=== PATIENT | female | born 1955 | race Caucasian/White ===

== ENCOUNTER 2023-08-23 14:13 | Inpatient (IN) | payer MEDICARE, OTHER ==
[~2023-08-23] VITALS: Ht 157.5 cm; Wt 67.1 kg
[2023-08-23] MEDS ORDERED: LORAZEPAM 2 MG/1 ML VIAL ONE (14:38)
[2023-08-23] MEDS ORDERED: LORAZEPAM 2 MG/1 ML VIAL IM ONE (14:45)
[2023-08-23] MEDS ORDERED: MELA5TAB21 PO (15:15)
[2023-08-23] MEDS ORDERED: NITR0.4T48 SL (15:15)
[2023-08-23] MEDS ORDERED: LORA0.5T48 PO (15:15)
[2023-08-23] MEDS ORDERED: FLUO20CA36 PO (15:15)
[2023-08-23] MEDS ORDERED: VITAMIN D3 PO (15:15)
[2023-08-23] MEDS ORDERED: HYDR-3972 PO (15:15)
[2023-08-23] MEDS ORDERED: ALPR0.255 PO (15:15)
[2023-08-23] MEDS ORDERED: APIX2.5T PO (15:15)
[2023-08-23] MEDS ORDERED: MULT-213 PO (15:15)
[2023-08-23] MEDS ORDERED: TRAZ-257 PO (15:15)
[2023-08-23] MEDS ORDERED: MAGNESIUM HYDROXIDE 30 ML LIQUID UDC PO PRN (17:15)
[2023-08-23] MEDS ORDERED: BLOOD SUGAR DIAGNOSTIC 1 EACH STRIP VI ONE (17:15)
[2023-08-23] MEDS: ACETAMINOPHEN 325 MG TABLET PO PRN (17:28)
[2023-08-23] MEDS ORDERED: NITROGLYCERIN 0.4 MG/TAB BOTTLE SL PRN (17:45)
[2023-08-23] MEDS: LORAZEPAM 0.5 MG TABLET PO PRN (17:49)
[2023-08-23 18:58] VITALS: BP 98/69; TEMP 98.4; O2SAT 98
[2023-08-23 20:00] VITALS: BP 99/66; TEMP 98.1; O2SAT 97
[2023-08-23] MEDS: APIXABAN 2.5 MG TABLET PO SCH (20:23)
[2023-08-23] MEDS: HYDROCODONE/APAP 5-325MG TABLET PO PRN (20:25)
[2023-08-23] MEDS: TEMAZEPAM 7.5 MG CAPSULE PO PRN (21:37)
[2023-08-24] MEDS: LORAZEPAM 0.5 MG TABLET PO PRN ×3 (06:21→19:57)
[2023-08-24 08:12] VITALS: BP 121/77; TEMP 98; O2SAT 99
[2023-08-24 08:44] LABS: ALBUMIN 3.1 g/dL (3.4-5.0); BILIRUBIN,TOTAL 0.8 mg/dL (0.2-1.0); CALCIUM 9.8 mg/dL (8.5-10.1); CREATININE 0.5 mg/dL (0.6-1.3); POTASSIUM 3.6 mmol/L (3.5-5.1); TOTAL PROTEIN, SERUM 6.3 g/dL (6.4-8.2)
[2023-08-24] MEDS: APIXABAN 2.5 MG TABLET PO SCH ×2 (08:48→20:49)
[2023-08-24] MEDS: HYDROCODONE/APAP 5-325MG TABLET PO PRN ×2 (08:49→14:10)
[2023-08-24] MEDS: CHOLECALCIFEROL 1,000 UNIT TABLET PO SCH (08:49)
[2023-08-24] MEDS: MULTIVIT, IRON, MIN NO. 8, FA TABLET PO SCH (08:49)
[2023-08-24] MEDS ORDERED: [UNRECOGNIZED DRUG - OTHER] PO SCH (09:00)
[2023-08-24] MEDS ORDERED: Medication Not On Formulary EA (Multivitamins W-Minerals (Multivitamin With Minerals) 1 PO SCH (09:00)
[2023-08-24] MEDS ORDERED: APIXABAN 2.5 MG TABLET PO SCH (09:00)
[2023-08-24 12:26] LABS: BASOPHILS # (AUTO) 0.1 K/UL (0.0-0.2); BASOPHILS % (AUTO) 1.7 % (0.0-2.0); EOSINOPHILS # (AUTO) 0.1 K/uL (0.0-0.7); EOSINOPHILS % (AUTO) 2.9 % (0.0-7.0); HEMOGLOBIN 13.9 g/dL (10.9-14.3); LYMPHOCYTES # (AUTO) 1.3 K/uL (0.8-4.8); LYMPHOCYTES % (AUTO) 28.7 % (20.5-51.5); MEAN CORPUSCULAR HEMOGLOBIN 29.5 uug (24.7-32.8); MEAN CORPUSCULAR HGB CONC 33 g/dL (32.3-35.6); MEAN CORPUSCULAR VOLUME 90.7 fL (75.5-95.3); MONOCYTES # (AUTO) 0.3 K/uL (0.1-1.30); MONOCYTES % (AUTO) 6.1 % (0.0-11.0); NEUTROPHILS # (AUTO) 2.8 K/uL (1.8-8.9); NEUTROPHILS % (AUTO) 60.6 % (38.5-71.5); PLATELET COUNT (AUTO) 179 K/uL (179-408); RED BLOOD CELL COUNT(AUTO) 4.73 MIL/uL (3.63-4.92); RED CELL DISTRIBUTION WIDTH 14.2 % (12.3-17.7); WHITE BLOOD COUNT (AUTO) 4.6 K/uL (3.8-11.8)
[2023-08-24 12:53] LABS: DIFFERENTIAL COMMENT 1
[2023-08-24] MEDS: ALPRAZOLAM 0.25 MG TABLET PO SCH ×2 (12:59→17:35)
[2023-08-24] MEDS: DIVALPROEX SPRINKLE 125 MG CAP.SPRINK PO SCH ×2 (12:59→17:35)
[2023-08-24 15:14] VITALS: BP 105/69; TEMP 98; O2SAT 98
[2023-08-24 20:00] VITALS: BP 103/60; TEMP 98.1; O2SAT 97
[2023-08-24] MEDS: OLANZAPINE 2.5 MG TABLET PO SCH (20:49)
[2023-08-24] MEDS: REMEDY ESSENTIAL ZINC PASTE 113 GM TOP SCH (21:00)
[2023-08-24] MEDS: TEMAZEPAM 7.5 MG CAPSULE PO PRN (22:42)
[2023-08-25] MEDS: LORAZEPAM 0.5 MG TABLET PO PRN ×3 (06:21→16:59)
[2023-08-25 08:02] VITALS: BP 109/71; TEMP 98; O2SAT 98
[2023-08-25] MEDS: DIVALPROEX SPRINKLE 125 MG CAP.SPRINK PO SCH ×3 (08:33→16:42)
[2023-08-25] MEDS: CHOLECALCIFEROL 1,000 UNIT TABLET PO SCH (08:33)
[2023-08-25] MEDS: MULTIVIT, IRON, MIN NO. 8, FA TABLET PO SCH (08:33)
[2023-08-25] MEDS: ALPRAZOLAM 0.25 MG TABLET PO SCH ×3 (08:33→16:42)
[2023-08-25] MEDS: REMEDY ESSENTIAL ZINC PASTE 113 GM TOP SCH ×2 (08:33→20:55)
[2023-08-25] MEDS: APIXABAN 2.5 MG TABLET PO SCH ×2 (08:34→20:27)
[2023-08-25] MEDS: FLUOXETINE HCL 10 MG CAPSULE PO SCH (08:34)
[2023-08-25 16:05] VITALS: BP 90/61; TEMP 98; O2SAT 98
[2023-08-25 20:00] VITALS: BP 88/53; TEMP 98; O2SAT 96
[2023-08-25] MEDS: OLANZAPINE 2.5 MG TABLET PO SCH (20:26)
[2023-08-25] MEDS: TEMAZEPAM 7.5 MG CAPSULE PO PRN ×2 (21:33→22:45)
[2023-08-26] MEDS: LORAZEPAM 0.5 MG TABLET PO PRN ×2 (05:27→11:22)
[2023-08-26] MEDS: ACETAMINOPHEN 325 MG TABLET PO PRN ×2 (05:38→22:21)
[2023-08-26] MEDS: HYDROCODONE/APAP 5-325MG TABLET PO PRN ×2 (07:40→17:38)
[2023-08-26 07:43] LABS: *BILIRUBIN,URIN NEGATIVE (NEGATIVE); *BLOOD, URINE 2+ (NEGATIVE); *CLARITY,URINE CLOUDY (CLEAR); *COLOR,URINE YELLOW (YELLOW); *KETONES,URINE TRACE (NEGATIVE); *PROTEIN,URINE NEGATIVE (NEGATIVE); *UROBILINOGEN,URINE 0.2 E.U./dl (NORMAL); LEUKOCYTE ESTERASE ,URINE 3+ (NEGATIVE); NITRITE, URINE NEGATIVE (NEGATIVE); PH,URINE 6.5 (5.0-8.0); UGLUCOSE NEGATIVE (NEGATIVE)
[2023-08-26 08:05] LABS: BACTERIA,URINE MANY /HPF (NONE SEEN); SQUAMOUS EPITHELIAL CELL,UR MODERATE /HPF (NONE SEEN); WBC,URINE TNTC /HPF (0-3)
[2023-08-26 08:06] VITALS: BP 101/66; TEMP 98; O2SAT 98
[2023-08-26] MEDS: DIVALPROEX SPRINKLE 125 MG CAP.SPRINK PO SCH ×3 (08:51→16:14)
[2023-08-26] MEDS: ALPRAZOLAM 0.25 MG TABLET PO SCH ×3 (08:51→16:14)
[2023-08-26] MEDS: CHOLECALCIFEROL 1,000 UNIT TABLET PO SCH (08:51)
[2023-08-26] MEDS: MULTIVIT, IRON, MIN NO. 8, FA TABLET PO SCH (08:51)
[2023-08-26] MEDS: APIXABAN 2.5 MG TABLET PO SCH ×2 (08:52→22:23)
[2023-08-26] MEDS: FLUOXETINE HCL 10 MG CAPSULE PO SCH (08:52)
[2023-08-26] MEDS: REMEDY ESSENTIAL ZINC PASTE 113 GM TOP SCH ×2 (08:53→22:24)
[2023-08-26 16:06] VITALS: BP 100/55; TEMP 98; O2SAT 98
[2023-08-26] MEDS: CEphaleXIN 500 MG CAPSULE PO SCH (16:14)
[2023-08-26 19:45] VITALS: BP 82/50; TEMP 97.4; O2SAT 95
[2023-08-26 21:00] VITALS: BP 89/70
[2023-08-26] MEDS: OLANZAPINE 2.5 MG TABLET PO SCH (22:28)
[2023-08-27] MEDS: TEMAZEPAM 7.5 MG CAPSULE PO PRN ×2 (02:12→21:09)
[2023-08-27 02:16] VITALS: BP 107/62
[2023-08-27] MEDS: HYDROCODONE/APAP 5-325MG TABLET PO PRN ×2 (06:02→16:43)
[2023-08-27] MEDS: REMEDY ESSENTIAL ZINC PASTE 113 GM TOP SCH ×2 (06:03→21:10)
[2023-08-27 08:10] VITALS: BP 111/76; TEMP 98.3; O2SAT 98
[2023-08-27] MEDS: DIVALPROEX SPRINKLE 125 MG CAP.SPRINK PO SCH ×3 (08:14→16:42)
[2023-08-27] MEDS: ALPRAZOLAM 0.25 MG TABLET PO SCH ×3 (08:14→16:43)
[2023-08-27] MEDS: MULTIVIT, IRON, MIN NO. 8, FA TABLET PO SCH (08:14)
[2023-08-27] MEDS: CHOLECALCIFEROL 1,000 UNIT TABLET PO SCH (08:14)
[2023-08-27] MEDS: CEphaleXIN 500 MG CAPSULE PO SCH ×2 (08:15→16:43)
[2023-08-27] MEDS: FLUOXETINE HCL 10 MG CAPSULE PO SCH (08:17)
[2023-08-27] MEDS: APIXABAN 2.5 MG TABLET PO SCH ×2 (08:18→20:40)
[2023-08-27] MEDS: LORAZEPAM 0.5 MG TABLET PO PRN (09:58)
[2023-08-27] MEDS: ACETAMINOPHEN 325 MG TABLET PO PRN (13:26)
[2023-08-27 16:28] VITALS: BP 101/53; TEMP 98; O2SAT 97
[2023-08-27 20:05] VITALS: BP 93/55; TEMP 97.9; O2SAT 98
[2023-08-27] MEDS: OLANZAPINE 2.5 MG TABLET PO SCH (20:38)
[2023-08-28] MEDS: LORAZEPAM 0.5 MG TABLET PO PRN ×3 (04:01→20:39)
[2023-08-28] MEDS: HYDROCODONE/APAP 5-325MG TABLET PO PRN (06:47)
[2023-08-28 08:27] VITALS: BP 128/65; TEMP 98.1; O2SAT 98
[2023-08-28] MEDS: CHOLECALCIFEROL 1,000 UNIT TABLET PO SCH (09:07)
[2023-08-28] MEDS: ALPRAZOLAM 0.25 MG TABLET PO SCH ×3 (09:07→17:53)
[2023-08-28] MEDS: CEphaleXIN 500 MG CAPSULE PO SCH ×2 (09:08→17:53)
[2023-08-28] MEDS: MULTIVIT, IRON, MIN NO. 8, FA TABLET PO SCH ×2 (09:08→09:10)
[2023-08-28] MEDS: DIVALPROEX SPRINKLE 125 MG CAP.SPRINK PO SCH ×3 (09:08→17:54)
[2023-08-28] MEDS: FLUOXETINE HCL 10 MG CAPSULE PO SCH (09:10)
[2023-08-28] MEDS: APIXABAN 2.5 MG TABLET PO SCH ×2 (09:11→20:40)
[2023-08-28] MEDS: REMEDY ESSENTIAL ZINC PASTE 113 GM TOP SCH ×2 (09:13→20:40)
[2023-08-28 16:55] VITALS: BP 104/58; TEMP 98; O2SAT 98
[2023-08-28 20:00] VITALS: BP 99/60; TEMP 98.2; O2SAT 96
[2023-08-28] MEDS: OLANZAPINE 2.5 MG TABLET PO SCH (20:39)
[2023-08-28] MEDS: TEMAZEPAM 7.5 MG CAPSULE PO PRN (22:05)
[2023-08-29] MEDS: HYDROCODONE/APAP 5-325MG TABLET PO PRN (01:24)
[2023-08-29 08:02] VITALS: BP 136/54; TEMP 98; O2SAT 98
[2023-08-29] MEDS: MULTIVIT, IRON, MIN NO. 8, FA TABLET PO SCH (09:21)
[2023-08-29] MEDS: ALPRAZOLAM 0.25 MG TABLET PO SCH ×3 (09:21→16:56)
[2023-08-29] MEDS: DIVALPROEX SPRINKLE 125 MG CAP.SPRINK PO SCH ×3 (09:21→16:56)
[2023-08-29] MEDS: FLUOXETINE HCL 10 MG CAPSULE PO SCH (09:23)
[2023-08-29] MEDS: CEphaleXIN 500 MG CAPSULE PO SCH ×2 (09:23→16:56)
[2023-08-29] MEDS: CHOLECALCIFEROL 1,000 UNIT TABLET PO SCH (09:23)
[2023-08-29] MEDS: APIXABAN 2.5 MG TABLET PO SCH ×2 (09:25→20:41)
[2023-08-29] MEDS: REMEDY ESSENTIAL ZINC PASTE 113 GM TOP SCH ×2 (09:25→20:41)
[2023-08-29] MEDS: LORAZEPAM 0.5 MG TABLET PO PRN (15:07)
[2023-08-29 16:41] VITALS: BP 106/53; TEMP 98; O2SAT 98
[2023-08-29 20:00] VITALS: BP 98/57; TEMP 98.1; O2SAT 96
[2023-08-29] MEDS: OLANZAPINE 2.5 MG TABLET PO SCH (20:33)
[2023-08-29] MEDS: TEMAZEPAM 7.5 MG CAPSULE PO PRN (22:17)
[2023-08-30] MEDS: LORAZEPAM 0.5 MG TABLET PO PRN (03:29)
[2023-08-30 05:58] VITALS: BP 107/67; O2SAT 98
[2023-08-30] MEDS: MAG HYDROX/AL HYDROX/SIMETH 30 ML LIQUID UDC PO PRN (05:59)
[2023-08-30] MEDS: ACETAMINOPHEN 325 MG TABLET PO PRN (05:59)
[2023-08-30 07:30] VITALS: BP 111/64; TEMP 98.2; O2SAT 98
[2023-08-30] MEDS: ALPRAZOLAM 0.25 MG TABLET PO SCH ×3 (09:44→17:55)
[2023-08-30] MEDS: CHOLECALCIFEROL 1,000 UNIT TABLET PO SCH (09:44)
[2023-08-30] MEDS: DIVALPROEX SPRINKLE 125 MG CAP.SPRINK PO SCH ×3 (09:45→17:54)
[2023-08-30] MEDS: MULTIVIT, IRON, MIN NO. 8, FA TABLET PO SCH (09:45)
[2023-08-30] MEDS: CEphaleXIN 500 MG CAPSULE PO SCH ×2 (09:45→17:54)
[2023-08-30] MEDS: FLUOXETINE HCL 10 MG CAPSULE PO SCH (09:45)
[2023-08-30] MEDS: APIXABAN 2.5 MG TABLET PO SCH ×2 (09:47→20:50)
[2023-08-30] MEDS: REMEDY ESSENTIAL ZINC PASTE 113 GM TOP SCH ×2 (10:06→21:03)
[2023-08-30 15:43] VITALS: BP 90/54; TEMP 98; O2SAT 98
[2023-08-30 20:00] VITALS: BP 98/62; TEMP 97.8; O2SAT 96
[2023-08-30] MEDS: OLANZAPINE 2.5 MG TABLET PO SCH (20:49)
[2023-08-30] MEDS: TEMAZEPAM 7.5 MG CAPSULE PO PRN (22:20)
[2023-08-31] MEDS: LORAZEPAM 0.5 MG TABLET PO PRN (05:15)
[2023-08-31 07:30] VITALS: BP 104/66; TEMP 98; O2SAT 96
[2023-08-31] MEDS: MAG HYDROX/AL HYDROX/SIMETH 30 ML LIQUID UDC PO PRN (07:30)
[2023-08-31] MEDS: CEphaleXIN 500 MG CAPSULE PO SCH ×2 (08:24→17:59)
[2023-08-31] MEDS: CHOLECALCIFEROL 1,000 UNIT TABLET PO SCH (08:24)
[2023-08-31] MEDS: FLUOXETINE HCL 10 MG CAPSULE PO SCH (08:24)
[2023-08-31] MEDS: MULTIVIT, IRON, MIN NO. 8, FA TABLET PO SCH (08:24)
[2023-08-31] MEDS: DIVALPROEX SPRINKLE 125 MG CAP.SPRINK PO SCH ×3 (08:24→17:59)
[2023-08-31] MEDS: APIXABAN 2.5 MG TABLET PO SCH ×2 (08:33→21:22)
[2023-08-31] MEDS: ALPRAZOLAM 0.25 MG TABLET PO SCH ×3 (08:41→17:59)
[2023-08-31] MEDS: REMEDY ESSENTIAL ZINC PASTE 113 GM TOP SCH ×2 (09:50→21:25)
[2023-08-31] MEDS: HYDROCODONE/APAP 5-325MG TABLET PO PRN (12:17)
[2023-08-31 15:43] VITALS: BP 87/53; TEMP 98; O2SAT 98
[2023-08-31 20:16] VITALS: BP 101/56; TEMP 98.1; O2SAT 98
[2023-08-31] MEDS: OLANZAPINE 2.5 MG TABLET PO SCH (20:51)
[2023-08-31] MEDS: TEMAZEPAM 7.5 MG CAPSULE PO PRN (23:12)
[2023-09-01] MEDS: LORAZEPAM 0.5 MG TABLET PO PRN ×3 (04:17→20:40)
[2023-09-01] MEDS: HYDROCODONE/APAP 5-325MG TABLET PO PRN ×2 (06:21→14:44)
[2023-09-01 08:20] VITALS: BP 144/69; TEMP 98.2; O2SAT 98
[2023-09-01] MEDS: DIVALPROEX SPRINKLE 125 MG CAP.SPRINK PO SCH ×3 (09:07→16:56)
[2023-09-01] MEDS: MULTIVIT, IRON, MIN NO. 8, FA TABLET PO SCH (09:07)
[2023-09-01] MEDS: CHOLECALCIFEROL 1,000 UNIT TABLET PO SCH (09:07)
[2023-09-01] MEDS: CEphaleXIN 500 MG CAPSULE PO SCH ×2 (09:07→16:56)
[2023-09-01] MEDS: ALPRAZOLAM 0.25 MG TABLET PO SCH ×3 (09:07→16:58)
[2023-09-01] MEDS: FLUOXETINE HCL 10 MG CAPSULE PO SCH (09:08)
[2023-09-01] MEDS: APIXABAN 2.5 MG TABLET PO SCH ×2 (09:08→20:39)
[2023-09-01] MEDS: REMEDY ESSENTIAL ZINC PASTE 113 GM TOP SCH ×2 (09:09→20:40)
[2023-09-01] MEDS: MAG HYDROX/AL HYDROX/SIMETH 30 ML LIQUID UDC PO PRN (14:54)
[2023-09-01 15:19] VITALS: BP 90/51; TEMP 98.2; O2SAT 98
[2023-09-01 18:43] VITALS: BP 101/68; O2SAT 97
[2023-09-01 20:20] VITALS: BP 104/56; TEMP 98.1; O2SAT 96
[2023-09-01] MEDS: OLANZAPINE 2.5 MG TABLET PO SCH (20:40)
[2023-09-02] MEDS: LORAZEPAM 0.5 MG TABLET PO PRN (04:00)
[2023-09-02] MEDS: MAG HYDROX/AL HYDROX/SIMETH 30 ML LIQUID UDC PO PRN (04:04)
[2023-09-02] MEDS: HYDROCODONE/APAP 5-325MG TABLET PO PRN (06:08)
[2023-09-02 08:16] VITALS: BP 104/63; TEMP 98; O2SAT 98
[2023-09-02] MEDS: MULTIVIT, IRON, MIN NO. 8, FA TABLET PO SCH (09:37)
[2023-09-02] MEDS: DIVALPROEX SPRINKLE 125 MG CAP.SPRINK PO SCH (09:37)
[2023-09-02] MEDS: CHOLECALCIFEROL 1,000 UNIT TABLET PO SCH (09:37)
[2023-09-02] MEDS: ALPRAZOLAM 0.25 MG TABLET PO SCH (09:37)
[2023-09-02] MEDS: CEphaleXIN 500 MG CAPSULE PO SCH (09:37)
[2023-09-02] MEDS: FLUOXETINE HCL 10 MG CAPSULE PO SCH (09:38)
[2023-09-02] MEDS: APIXABAN 2.5 MG TABLET PO SCH (09:39)
[2023-09-02] MEDS: REMEDY ESSENTIAL ZINC PASTE 113 GM TOP SCH (09:47)
== END 2023-09-02 11:30 | DRG 885 ==
LOC: ER 14:13 → GPS 15:35
PROVIDERS: ADMIT Psychiatry & Neurology Psychosomatic Medicine; ATTEND Student in an Organized Health Care Education/Training Program
DX: F31.5 Bipolar disorder, current episode depressed, severe, with psychotic features (principal); Z93.3 Colostomy status; E44.1 Mild protein-calorie malnutrition; K50.90 Crohn's disease, unspecified, without complications; N39.0 Urinary tract infection, site not specified; F60.3 Borderline personality disorder; F41.0 Panic disorder [episodic paroxysmal anxiety]; E78.5 Hyperlipidemia, unspecified; Z90.49 Acquired absence of other specified parts of digestive tract; Z86.711 Personal history of pulmonary embolism; I10 Essential (primary) hypertension; G89.29 Other chronic pain; E11.9 Type 2 diabetes mellitus without complications; R10.9 Unspecified abdominal pain; R63.0 Anorexia; Z68.27 Body mass index [BMI] 27.0-27.9, adult; Z79.01 Long term (current) use of anticoagulants; Z79.899 Other long term (current) drug therapy
CPT/HCPCS: 36415; 71045; 84443; 85025; J2060

== ENCOUNTER 2023-09-10 21:57 | Inpatient (IN) | payer MEDICARE, OTHER ==
[~2023-09-10] VITALS: Ht 157.5 cm; Wt 67.1 kg
[~2023-09-10 21:57] MED LIST: ALPR0.255 PO; APIX2.5T PO; FLUO20CA36 PO; HYDR-3972 PO; LORA0.5T48 PO; MELA5TAB21 PO; MULT-213 PO; NITR0.4T48 SL; TRAZ-257 PO; VITAMIN D3 PO
[2023-09-10] MEDS ORDERED: HYDROMORPHONE 1 MG/1 ML DISP.SYRIN IV ONE (22:15)
[2023-09-10] MEDS ORDERED: IV NORMAL SALINE 1000 ML BAG IV ONE (22:15)
[2023-09-10] MEDS ORDERED: ONDANSETRON 4 MG/2 ML VIAL IV ONE (22:15)
[2023-09-10 22:21] LABS: BASOPHILS # (AUTO) 0.1 K/UL (0.0-0.2); BASOPHILS % (AUTO) 0.7 % (0.0-2.0); HEMATOCRIT 40.7 % (31.2-41.9); HEMOGLOBIN 13.4 g/dL (10.9-14.3); LYMPHOCYTES # (AUTO) 1.2 K/uL (0.8-4.8); LYMPHOCYTES % (AUTO) 10.5 % (20.5-51.5); MEAN CORPUSCULAR HEMOGLOBIN 29.8 uug (24.7-32.8); MEAN CORPUSCULAR HGB CONC 33 g/dL (32.3-35.6); MEAN CORPUSCULAR VOLUME 90.2 fL (75.5-95.3); MONOCYTES # (AUTO) 0.5 K/uL (0.1-1.30); MONOCYTES % (AUTO) 4.4 % (0.0-11.0); NEUTROPHILS # (AUTO) 9.3 K/uL (1.8-8.9); NEUTROPHILS % (AUTO) 84.4 % (38.5-71.5); PLATELET COUNT (AUTO) 250 K/uL (179-408); RED BLOOD CELL COUNT(AUTO) 4.51 MIL/uL (3.63-4.92); RED CELL DISTRIBUTION WIDTH 13.8 % (12.3-17.7); WHITE BLOOD COUNT (AUTO) 11.1 K/uL (3.8-11.8)
[2023-09-10] MEDS ORDERED: HYDROMORPHONE 1 MG/1 ML DISP.SYRIN ONE (22:22)
[2023-09-10] MEDS ORDERED: ONDANSETRON 4 MG/2 ML VIAL ONE (22:22)
[2023-09-10 22:24] LABS: DIFFERENTIAL COMMENT 1
[2023-09-10] MEDS ORDERED: CHOL10005 PO (22:27)
[2023-09-10] MEDS ORDERED: DIVA250T PO (22:27)
[2023-09-10] MEDS ORDERED: NITR0.4T48 SL (22:27)
[2023-09-10] MEDS ORDERED: ALPR0.255 PO (22:27)
[2023-09-10] MEDS ORDERED: HYDR-3972 PO (22:27)
[2023-09-10] MEDS ORDERED: OLAN2.5T3 PO (22:27)
[2023-09-10] MEDS ORDERED: TEMA7.5C PO (22:27)
[2023-09-10] MEDS ORDERED: MAGN400O6 PO (22:27)
[2023-09-10] MEDS ORDERED: FLUO10CA26 PO (22:27)
[2023-09-10] MEDS ORDERED: DOCU100C36 PO (22:27)
[2023-09-10] MEDS ORDERED: ALUM1POW3 PO (22:27)
[2023-09-10] MEDS ORDERED: TRIA60LO7 TP (22:27)
[2023-09-10] MEDS ORDERED: ONDA4TAB5 PO (22:27)
[2023-09-10] MEDS ORDERED: MENT71OI TP (22:27)
[2023-09-10] MEDS ORDERED: DIPH25TA25 PO (22:27)
[2023-09-10] MEDS ORDERED: ACET325T53 PO (22:27)
[2023-09-10 22:41] LABS: CALCIUM 10.2 mg/dL (8.5-10.1); CARBON DIOXIDE 24 mmol/L (21-32); CHLORIDE 99 mmol/L (98-107); CREATININE 0.7 mg/dL (0.6-1.3); GLUCOSE 122 mg/dL (74-106); POTASSIUM 3.2 mmol/L (3.5-5.1); SODIUM SERUM 138 mmol/L (136-145); UREA NITROGEN, BLOOD 10 mg/dL (7-18)
[2023-09-10 22:48] LABS: ALANINE AMINOTRANSFERASE 22 U/L (14-59); ALBUMIN 3.3 g/dL (3.4-5.0); ALKALINE PHOSPHATASE 59 U/L (50-136); ASPARTATE AMINOTRANSFERASE 15 U/L (15-37); BILIRUBIN,DIRECT 0.2 mg/dL (0.0-0.2); BILIRUBIN,TOTAL 1.4 mg/dL (0.2-1.0); LIPASE 42 U/L (16-77); TOTAL PROTEIN, SERUM 7.7 g/dL (6.4-8.2)
[2023-09-10] MEDS ORDERED: POTASSIUM CHLORIDE 200 ML ONE (22:57)
[2023-09-10] MEDS ORDERED: MAGNESIUM SULFATE/D5W 100 ML ONE ×2 (22:59→23:54)
[2023-09-10] MEDS: MAGNESIUM SULFATE/D5W 100 ML IV SCH (23:00)
[2023-09-10] MEDS: POTASSIUM CHLORIDE 50 ML IV SCH (23:53)
[2023-09-10] MEDS ORDERED: IV NORMAL SALINE 250 ML IV ONE (23:54)
[2023-09-10] MEDS ORDERED: IOHEXOL 300MG/ML 100 ML INFUS..BTL ONE (23:54)
[2023-09-10] MEDS ORDERED: SWABABLE VALVE TRANSFER SET EA MC ONE (23:54)
[2023-09-11] MEDS: POTASSIUM CHLORIDE 50 ML IV SCH ×3 (00:49→02:28)
[2023-09-11] MEDS ORDERED: HYDROMORPHONE 1 MG/1 ML DISP.SYRIN IV ONE (01:00)
[2023-09-11] MEDS ORDERED: hydrALAZINE HCL 20 MG/1 ML VIAL IV PRN (01:15)
[2023-09-11] MEDS ORDERED: MORPHINE SULFATE 2 MG/1 ML DISP.SYRIN IVP PRN (01:15)
[2023-09-11] MEDS ORDERED: HYDROMORPHONE 1 MG/1 ML DISP.SYRIN ONE (01:15)
[2023-09-11] MEDS: MAGNESIUM SULFATE/D5W 100 ML IV SCH (01:16)
[2023-09-11] MEDS: IV NS 1000 ML 1,000 ML IV SCH ×2 (02:26→13:44)
[2023-09-11] MEDS: ONDANSETRON 4 MG/2 ML VIAL IV PRN ×4 (02:36→23:44)
[2023-09-11] MEDS: HYDROMORPHONE 1 MG/1 ML DISP.SYRIN IV PRN ×5 (04:52→23:52)
[2023-09-11 12:00] VITALS: BP 113/50; TEMP 98.7; O2SAT 97
[2023-09-11 15:17] VITALS: BP 107/55; TEMP 98.2; O2SAT 96
[2023-09-11] MEDS ORDERED: MAG355OR18 PO (15:57)
[2023-09-11 16:41] VITALS: BP 109/48; TEMP 98.2
[2023-09-11] MEDS ORDERED: ENOXAPARIN SODIUM 80 MG/0.8 ML DISP.SYRIN SQ SCH (17:00)
[2023-09-11 20:00] VITALS: BP 135/78; TEMP 97.3; O2SAT 96
[2023-09-11] MEDS: OLANZAPINE 2.5 MG TABLET PO SCH (20:52)
[2023-09-12] VITALS (7 sets, daily range): BP systolic 85–133; BP diastolic 45–74; TEMP 98–99.3; O2SAT 92–96
[2023-09-12] MEDS ORDERED: LORAZEPAM 2 MG/1 ML VIAL IV ONE ×2 (01:45→21:00)
[2023-09-12] MEDS: IV NS 1000 ML 1,000 ML IV SCH ×2 (02:08→14:12)
[2023-09-12] MEDS: ONDANSETRON 4 MG/2 ML VIAL IV PRN ×2 (02:40→17:23)
[2023-09-12] MEDS: HYDROMORPHONE 1 MG/1 ML DISP.SYRIN IV PRN ×5 (05:11→21:15)
[2023-09-12 06:53] LABS: BASOPHILS % (AUTO) 0.2 % (0.0-2.0); EOSINOPHILS % (AUTO) 0.4 % (0.0-7.0); HEMOGLOBIN 10.8 g/dL (10.9-14.3); LYMPHOCYTES # (AUTO) 0.8 K/uL (0.8-4.8); LYMPHOCYTES % (AUTO) 11.6 % (20.5-51.5); MEAN CORPUSCULAR HGB CONC 34 g/dL (32.3-35.6); MEAN CORPUSCULAR VOLUME 91.6 fL (75.5-95.3); MONOCYTES # (AUTO) 0.6 K/uL (0.1-1.30); MONOCYTES % (AUTO) 7.9 % (0.0-11.0); NEUTROPHILS # (AUTO) 5.6 K/uL (1.8-8.9); NEUTROPHILS % (AUTO) 79.9 % (38.5-71.5); PLATELET COUNT (AUTO) 175 K/uL (179-408); RED CELL DISTRIBUTION WIDTH 14.2 % (12.3-17.7)
[2023-09-12 06:59] LABS: DIFFERENTIAL COMMENT 1
[2023-09-12 07:29] LABS: ALBUMIN 2.5 g/dL (3.4-5.0); BILIRUBIN,TOTAL 0.8 mg/dL (0.2-1.0); CALCIUM 8.7 mg/dL (8.5-10.1); CREATININE 0.7 mg/dL (0.6-1.3); PHOSPHOROUS 3.2 mg/dL (2.5-4.9); POTASSIUM 3.6 mmol/L (3.5-5.1); TOTAL PROTEIN, SERUM 5.8 g/dL (6.4-8.2)
[2023-09-12] MEDS ORDERED: LORAZEPAM 0.5 MG TABLET PO PRN (10:15)
[2023-09-12] MEDS: VALPROATE SODIUM IV 250 MG in IV DEXTROSE 5% 100 ML IV SCH ×3 (11:51→21:15)
[2023-09-12] MEDS: OLANZAPINE 2.5 MG TABLET PO SCH (21:00)
[2023-09-12] MEDS ORDERED: SWABABLE VALVE TRANSFER SET EA MC ONE (21:47)
[2023-09-12] MEDS ORDERED: IOHEXOL 300MG/ML 100 ML INFUS..BTL ONE (21:47)
[2023-09-12] MEDS ORDERED: IV NORMAL SALINE 250 ML IV ONE (21:47)
[2023-09-12] MEDS ORDERED: LORAZEPAM 2 MG/1 ML VIAL IV PRN (23:00)
[2023-09-13] MEDS: IV NS 1000 ML 1,000 ML IV SCH ×3 (00:56→18:14)
[2023-09-13] MEDS: HYDROMORPHONE 1 MG/1 ML DISP.SYRIN IV PRN ×4 (02:08→12:34)
[2023-09-13] MEDS: ONDANSETRON 4 MG/2 ML VIAL IV PRN ×2 (03:54→10:02)
[2023-09-13 04:21] VITALS: BP 96/46; TEMP 98.4; O2SAT 90
[2023-09-13] MEDS: VALPROATE SODIUM IV 250 MG in IV DEXTROSE 5% 100 ML IV SCH ×3 (06:08→20:05)
[2023-09-13 11:35] VITALS: BP 85/48; TEMP 98.8; O2SAT 94
[2023-09-13] MEDS ORDERED: DIATR MEGLU/DIATRIZOATE SODIUM 30 ML BOTTLE ONE ×2 (12:23→12:38)
[2023-09-13] MEDS: LORAZEPAM 2 MG/1 ML VIAL IV PRN ×2 (15:18→20:05)
[2023-09-13 16:00] VITALS: BP 102/60; TEMP 98.8; O2SAT 94
[2023-09-13] MEDS: OLANZAPINE 2.5 MG TABLET PO SCH (20:04)
[2023-09-13 20:20] VITALS: BP 98/57; TEMP 98; O2SAT 94
[2023-09-14 00:19] VITALS: O2SAT 95
[2023-09-14 04:25] VITALS: BP 102/58; TEMP 99.2; O2SAT 98
[2023-09-14] MEDS: VALPROATE SODIUM IV 250 MG in IV DEXTROSE 5% 100 ML IV SCH (05:16)
[2023-09-14 06:43] LABS: BASOPHILS % (AUTO) 0.4 % (0.0-2.0); EOSINOPHILS % (AUTO) 0.4 % (0.0-7.0); HEMATOCRIT 30.2 % (31.2-41.9); HEMOGLOBIN 10.1 g/dL (10.9-14.3); LYMPHOCYTES # (AUTO) 0.9 K/uL (0.8-4.8); LYMPHOCYTES % (AUTO) 10.1 % (20.5-51.5); MEAN CORPUSCULAR HEMOGLOBIN 30.6 uug (24.7-32.8); MEAN CORPUSCULAR HGB CONC 34 g/dL (32.3-35.6); MEAN CORPUSCULAR VOLUME 91.4 fL (75.5-95.3); MONOCYTES # (AUTO) 0.4 K/uL (0.1-1.30); MONOCYTES % (AUTO) 4.4 % (0.0-11.0); NEUTROPHILS # (AUTO) 7.9 K/uL (1.8-8.9); NEUTROPHILS % (AUTO) 84.7 % (38.5-71.5); PLATELET COUNT (AUTO) 180 K/uL (179-408); RED CELL DISTRIBUTION WIDTH 13.5 % (12.3-17.7); WHITE BLOOD COUNT (AUTO) 9.3 K/uL (3.8-11.8)
[2023-09-14 07:01] LABS: DIFFERENTIAL COMMENT 1
[2023-09-14 07:06] LABS: CALCIUM 8.2 mg/dL (8.5-10.1); CREATININE 0.6 mg/dL (0.6-1.3); MAGNESIUM 2.1 mg/dL (1.8-2.4); PHOSPHOROUS 1.3 mg/dL (2.5-4.9)
[2023-09-14 07:24] LABS: POTASSIUM 2.8 mmol/L (3.5-5.1)
[2023-09-14] MEDS: HYDROMORPHONE 1 MG/1 ML DISP.SYRIN IV PRN (08:45)
[2023-09-14] MEDS ORDERED: POTASSIUM CHLORIDE 20 MEQ TAB.PRT.SR PO ONE (10:00)
[2023-09-14] MEDS ORDERED: POTASSIUM CHLORIDE 50 ML IV SCH (10:00)
[2023-09-14] MEDS: IV NS 1000 ML 1,000 ML IV SCH (10:08)
[2023-09-14] MEDS: POTASSIUM CHLORIDE 10 MEQ TAB.PRT.SR PO SCH ×2 (10:23→11:51)
[2023-09-14] MEDS ORDERED: DIVA125C2 PO (10:58)
[2023-09-14] MEDS ORDERED: OLAN2.5T27 PO (10:58)
[2023-09-14 11:30] VITALS: BP 96/55; TEMP 98.3; O2SAT 95
[2023-09-14] MEDS: ONDANSETRON 4 MG/2 ML VIAL IV PRN (11:50)
[2023-09-14] MEDS ORDERED: ONDANSETRON 4 MG/2 ML VIAL IV ONE (13:30)
[2023-09-14] MEDS ORDERED: DIVALPROEX SPRINKLE 125 MG CAP.SPRINK PO SCH (14:00)
[2023-09-14] MEDS: LORAZEPAM 2 MG/1 ML VIAL IV PRN (14:22)
[2023-09-14] MEDS ORDERED: NEUTRA PHOS PACKET PO ONE (16:30)
== END 2023-09-14 15:07 | DRG 389 ==
LOC: ER 22:00 → TELE3 09-11 01:53 → MEDSURG3 09-12 09:35
PROVIDERS: ADMIT Internal Medicine; ATTEND Nurse Practitioner Acute Care
PROC: 0D9670Z Drainage of Stomach with Drainage Device, Via Natural or Artificial Opening (ICD-10-PCS; principal; 2023-09-11)
DX: K56.50 Intestinal adhesions [bands], unspecified as to partial versus complete obstruction (principal); F31.5 Bipolar disorder, current episode depressed, severe, with psychotic features; K50.90 Crohn's disease, unspecified, without complications; E87.6 Hypokalemia; F31.9 Bipolar disorder, unspecified; F50.9 Eating disorder, unspecified; Z68.27 Body mass index [BMI] 27.0-27.9, adult; Z93.3 Colostomy status; M21.379 Foot drop, unspecified foot; F41.9 Anxiety disorder, unspecified; F60.3 Borderline personality disorder; Z79.899 Other long term (current) drug therapy; Z90.49 Acquired absence of other specified parts of digestive tract; Z79.01 Long term (current) use of anticoagulants; Z99.3 Dependence on wheelchair
CPT/HCPCS: 36415; 71045; 74250; 83605; 83690; 83735; 84100; 84484; 85025; 85730; 93005; A4663; G0378; J1170; J2060; J2405; J3475; J3480; J3490; J7040; Q9963; Q9967